=== PATIENT | male | born 1955 | race Caucasian/White ===

== ENCOUNTER → 2019-02-22 10:18 | Outpatient (CLI) | payer SELFPAY ==
[2019-02-05 11:13] VITALS: BMI 29.9
--- NOTE | 2019-02-22 10:21 | ECHOCS_ITS ---
Reason For Study: HTN Procedure This was a 2D Doppler, Color Flow transthoracic echocardiogram. The study was technically difficult. Contrast injection was performed. Echo done post stress echo. Exam performed in department. Left Ventricle Normal size and thickness. The estimated ejection fraction is 65 %. Stage 1 diastolic dysfunction. No regional wall motion abnormalities noted. Right Ventricle Normal size and thickness. Normal systolic function. Atria Normal left atrium. Normal right atrium. Normal atrial septum. Mitral Valve The mitral valve is structurally normal. No prolapse or stenosis seen. Trivial posteriorly directed mitral valve insufficiency. Tricuspid Valve Normal tricuspid valve. Unable to estimate RV systolic pressure due to insufficient tricuspid regurgitant envelope. Aortic Valve Normal aortic valve. Trisinus/trileaflet aortic valve. Pulmonic Valve Normal pulmonic valve. Great Vessels Normal aortic root. Normal arch. Normal inferior vena cava. Inferior vena cava collapse with sniff. Pericardium/Pleural No pericardial effusion. Medication 22 gauge I.V. with prn adaptor inserted into right arm. Diluted definity 2ml given slow IV push to enhance endocardial definition. MMode/2D Measurements & Calculations LVIDd: 3.6 cm IVSd: 0.95 cm LAV(MOD-bp): 47.0 ml LVIDs: 2.5 cm LVPWd: 1.2 cm FS: 31.7 % LAV(MOD-bp) Indexed: 25.2 ml/m2 LAV(MOD-sp2): 38.5 ml LAV(MOD-sp4): 47.2 ml LA A4 area: 18.1 cm2 RA A4 area: 12.4 cm2 Time Measurements MV dec time: 0.16 sec Doppler Measurements & Calculations MV E max del: 65.9 cm/sec Lat Peak E' Del: 13.5 cm/sec Med Peak E' Del: 9.2 cm/sec MV A max del: 90.6 cm/sec E/E' lat: 4.9 E/E' med: 7.2 MV E/A: 0.73 MV V2 max: 96.6 cm/sec MV P1/2t max del: 58.9 cm/sec Ao V2 max: 144.1 cm/sec MV max P.7 mmHg MV P1/2t: 52.9 msec Ao max P.3 mmHg MV V2 mean: 49.2 cm/sec Ao V2 mean: 89.9 cm/sec MV mean P.2 mmHg MV dec slope: 326.1 cm/sec2 Ao mean P.9 mmHg MV V2 VTI: 16.9 cm MVA(P1/2t): 4.2 cm2 Ao V2 VTI: 23.7 cm LV V1 max: 104.6 cm/sec PA V2 max: 122.3 cm/sec LV V1 max P.4 mmHg LV V1 mean P.1 mmHg LV V1 mean: 67.4 cm/sec LV V1 VTI: 18.7 cm Interpretation Summary The estimated ejection fraction is 65 %. Stage 1 diastolic dysfunction. Trivial posteriorly directed mitral valve insufficiency. Unable to estimate RV systolic pressure due to insufficient tricuspid regurgitant envelope. The study was technically difficult. Contrast injection was performed. There is no comparison study available. Ordering Physician: Fernando Fisher Referring Physician: Freddy Torres Performed By: Froilan Cain RCS
--- NOTE | 2019-02-22 10:21 | STEWCON_ITS ---
Reason For Study: ARRHYTMIA Stress Results Protocol: Ezequiel Protocol WITH DEFINITY Maximum Predicted HR: 157 bpm Target HR: 133 bpm % Maximum Predicted HR: 94 % DurationHeart Rate Stage (mm:ss) (bpm) BP Comment BASELINE 88 140/78 STAGE 1 3:00 117 180/78 STAGE 2 3:00 130 170/62 STAGE 3 3:00 148 182/70SOB RECOVERY 104 140/604 CC DEFINITY Stress Duration: 9:00 mm:ss Maximum Stress HR: 148 bpm Baseline Echocardiogram Findings The estimated ejection fraction is 65 %. Stress Echo Wall motion Data Resting WM Intermediate WM Stress WM Resting Wall Motion Wall Motion Stress No regional wall motion Posterior-Basal: Mildly abnormalities noted. hypokinetic. Infero-Basal: Mildly hypokinetic. EKG Data The baseline ECG displays normal sinus rhythm. The patient exercised according to the regular Ezequiel protocol for a total duration of 9:01. The maximum heart rate attained was 151 beats per minute. This was 96% of maximum predicted heart rate. The patient exercised into stage 4 of the Ezequiel protocol. The stress ECG displays diffuse abnormal ST segments. No clinical angina was noted. Interpretation Summary The estimated ejection fraction is 65 %. Abnormal, adequate, treadmill echocardiogram. Positive for ischemia by EKG and echocardiographic criteria. Patient appeared to develop mid inferior hypokinesis at peak exercise. Patient developed [address] segment depression along the inferior lateral leads at 5 minutes 50 seconds into exercise which resolved by 3 minutes 50 seconds into recovery. Rare PVCs noted. Appropriate blood pressure response to exercise. Average exercise capacity for age. Final LVEF of 70%. Stress echo results may be affected by poor echo windows requiring Definity agent. No complications. The study was technically difficult. Contrast injection was performed. Ordering Physician: Fernando Fisher Referring Physician: Fernando Fisher Performed By: Froilan Cain RCS
== END ==
PROVIDERS: Family Provider Family Medicine; PCP Family Medicine; Referring Provider Internal Medicine Cardiovascular Disease; Visit Provider Internal Medicine Cardiovascular Disease
DX: I10 Essential (primary) hypertension (principal); E78.5 Hyperlipidemia, unspecified; I49.3 Ventricular premature depolarization; R94.31 Abnormal electrocardiogram [ECG] [EKG]
CPT/HCPCS: 93017; 93306; 93350; Q9957; A4216; C8928; C8929

== ENCOUNTER 2019-03-13 07:35 | Day surgery (SDC) | payer SELFPAY ==
[2019-02-22 14:52] VITALS: BMI 29.9
[2019-02-27 11:42] VITALS: BMI 29.9
--- NOTE | 2019-03-04 09:54 | RAD_ITS ---
STUDY: X-RAY CHEST REASON FOR EXAM: Male, 63 years old. Abnormal stress test. TECHNIQUE: PA and lateral views of the chest. COMPARISON: None. FINDINGS: The lungs are clear and expanded. There is no demonstrated pleural abnormality. Normal size heart. Normal mediastinum and linus. Normal visualized pulmonary arteries. Normal visualized aortic arch and descending thoracic aorta. There are diffuse degenerative changes of the visualized thoracic spine. Normal visualized ribs, clavicles, and shoulders. There is no demonstrated abnormality of the visualized soft tissue structures of the upper abdomen. RAD/Chest PA and Lateral IMPRESSION: Degenerative changes, as described above. No demonstrated acute cardiopulmonary process. Electronically Signed: True Lloyd DO at 16:57 EDT Tel [phone], Service support ,
[2019-03-04 10:58] LABS: Hematocrit 42.5 % (40-54); Hemoglobin 14.3 g/dL (13.0-16.5); Mean Corp Hgb Conc 33.6 g/dL (32-36); Mean Corpuscular Volume 83.2 fL (80-94); Mean Platelet Vol. 8.8 fl (6.2-12.0); Platelet Count 186 K/mm3 (150-450); RBC Distribution Width CV 12.4 % (11.6-14.6); RBC Distribution Width SD 37.5 fl (35.1-43.9); Red Blood Count 5.11 M/mm3 (4.6-6.2); White Blood Count 6.5 K/mm3 (4.4-11.0)
[2019-03-04 11:08] LABS: International Normalized Ratio 1.1; Prothrombin Time (Protime)PT. 14.3 SECONDS (11.7-14.9)
[2019-03-04 11:09] LABS: Partial Thromboplast Time 28.2 Seconds (24.1-36.2)
[2019-03-04 11:35] LABS: AST(SGOT) 19 U/L (15-37); Alanine Aminotransfer ALT/SGPT 40 U/L (16-61); Albumin, Serum 3.9 g/dL (3.2-5.0); Alkaline Phosphatase 74 U/L (45-117); Anion Gap 5 (5-15); BUN 12 mg/dL (7-18); BUN/Creat Ratio 11.7 RATIO (10-20); Bilirubin, Direct 0.15 mg/dL (0.00-0.30); Calcium,Total 8.6 mg/dL (8.5-10.1); Chloride 108 mmol/L (98-107); Cholesterol 162 mg/dL (200); Creatinine, Serum 1.03 mg/dL (0.70-1.30); EST Glomerular Filtration Rate 77 mL/min (>60); Est Glom Filt Rate - Afr Amer 94 mL/min (>60); Globulin 3.2 g/dL (2.2-4.2); Glucose 113 mg/dL (74-106); High Density Lipoprotein 40 mg/dL; Protein, Total 7.1 g/dL (6.4-8.2); Sodium Level 142 mmol/L (136-145); Triglycerides 110 mg/dL; Very Low Density Lipoprotein 22 mg/dL (5-40)
[2019-03-13 07:53] VITALS: BMI 28.3
--- NOTE | 2019-03-13 10:12 | HP.PCM_ITS ---
Problem List (1) Abnormal EKG Status: Acute (2) Abnormal stress echo Status: Acute (3) Encounter for preventive health examination Status: Acute (4) PVCs (premature ventricular contractions) Status: Acute (5) Hyperlipidemia Status: Chronic (6) Hypertension Status: Chronic History and Physical Date of Admission: 03/13/19 [facility] [address] [place] [address] OFFICE VISIT Date of Service: MR#: [id number] Acct: [id number] Name: PANKAJ ZAMORA Rep #: [id number] : 1955 Provider: Fernando sorensen MD Age/Sex: 63/M Location: [facility] Status: Signed Intake Intake Visit Reasons: Amb Documentation Allergies No Known Allergies Allergy (Unverified 02/05/19 08:49) [facility] Medical History (Updated 02/05/19 @ 08:53 by Jenise Rubio) Abnormal EKG (Acute) PVCs (premature ventricular contractions) (Acute) Hypertension (Chronic) Hyperlipidemia (Chronic) Encounter for preventive health examination (Acute) Family History (Updated 02/05/19 @ 11:12 by Jenise Rubio) Grandfather Prostate cancer Father Prostate cancer Brother Prostate cancer Unknown DVT (deep venous thrombosis) Pulmonary embolus Social History Smoking Status: Current every day smoker tobacco type: cigars Supplemental Info Supplemental Information Diagnostics Electrocardiogram 02/05/19 Echocardiogram 02/22/19 02/25/19 0859 <Electronically signed by Fernando Fisher MD> Date _ Fernando Fisher MD [facility] Signature: Date (if applicable) Interventional cardiology addendum: Patient seen and examined on day of catheterization. No interim changes noted. The risks/benefits of the procedure were thoroughly explained the patient including specific attention to lack of on-site surgical back-up, and informed consent was obtained. Cardiac catheterization to follow.
--- NOTE | 2019-03-13 10:12 | PCM.HP.BLA ---
Problem List (1) Abnormal EKG Status: Acute (2) Abnormal stress echo Status: Acute (3) Encounter for preventive health examination Status: Acute (4) PVCs (premature ventricular contractions) Status: Acute (5) Hyperlipidemia Status: Chronic (6) Hypertension Status: Chronic History and Physical Date of Admission: 03/13/19 [facility] [address] [place] [address] OFFICE VISIT Date of Service: MR#: [id number] Acct: [id number] Name: PANKAJ ZAMORA Rep #: [id number] : 1955 Provider: Fernando Fisher MD Age/Sex: 63/M Location: [facility] [place].[facility] Status: Signed Intake Intake Visit Reasons: Amb Documentation Allergies No Known Allergies Allergy (Unverified 02/05/19 08:49) [facility] Medical History (Updated 02/05/19 @ 08:53 by Jenise Rubio) Abnormal EKG (Acute) PVCs (premature ventricular contractions) (Acute) Hypertension (Chronic) Hyperlipidemia (Chronic) Encounter for preventive health examination (Acute) Family History (Updated 02/05/19 @ 11:12 by Jenise Rubio) Grandfather Prostate cancer Father Prostate cancer Brother Prostate cancer Unknown DVT (deep venous thrombosis) Pulmonary embolus Social History Smoking Status: Current every day smoker tobacco type: cigars Supplemental Info Supplemental Information Diagnostics Electrocardiogram 02/05/19 Echocardiogram 02/22/19 02/25/19 0859 <Electronically signed by Fernando Fisher MD> Date Fernando Fisher MD [facility] Signature: Date (if applicable) Interventional cardiology addendum: Patient seen and examined on day of catheterization. No interim changes noted. The risks/benefits of the procedure were thoroughly explained the patient including specific attention to lack of on-site surgical back-up, and informed consent was obtained. Cardiac catheterization to follow.
--- NOTE | 2019-03-13 11:20 | CL.D_ITS ---
Patient Name: PANKAJ ZAMORA Study Date: 03/13/2019 Performing: Fernando Fisher MD Ht: 65 inches 165.1 cm : 1955 Wt: 170.29 lbs 77.24 kg Age: 63 Gender: male BSA: 1.85 PROCEDURE(S) PERFORMED [id number] CLINICAL PROFILE AND INDICATIONS Indications: Suspected CAD Heart Failure: None Stress/Imaging Date: 02/22/2019 Angina Classification Anginal Classification w/in 2 Weeks: CCS I CAD Presentations: Symptom unlikely to be ischemic. Comorbidities/Risk Factors: Hypertension Dyslipidemia CONCLUSIONS Normal LV size, wall motion,and systolic function Perserved Left Ventricular systolic function with normal EDP LVEF: by LV gram 65 % Non obstructive coronary arteries RECOMMENDATIONS Management as per referring Senior Ssis Developer D/c plavix. Continue anti-HTN and anti-cholesterol meds. DESCRIPTION OF PROCEDURE The patient arrived to the procedure lab. The risks and benefits of the procedure as well as a full d escription of our services here and current unavailability of surgical backup were fully explained to the patient and/or their significant other prior to the catheterization. The Timeout was completed, verifying the correct patient and procedure. The patient's procedural site was prepped and draped in the usual fashion. Local anesthetic was given subcutaneously to right groin region with Lidocaine 2%. Using a modified Seldinger technique, arterial access was obtained via the right femoral artery, a 4 Fr sheath was inserted Left Coronary Artery selective angiography was performed in multiple views us ing a 4 Fr. JL5 catheter. Right Coronary Artery selective angiography was then performed in multiple views using a 4 Fr. 3DRC catheter. Left Ventriculography was performed in CROWLEY projection using a 4 Fr . Pigtail catheter. LV to AO pullback pressures were then recorded.The arterial sheath was pulled and manual compression applied until hemostasis is achieved. CORONARY ANGIOGRAPHY DOMINANCE: Right Dominant LEFT HEART ASSESSMENT Left Ventricular Ejection Fraction: by LV Gram 65 % Normal LV wall motion Normal Left Ventricular systolic function LEFT MAIN: Angiographically normal LEFT ANTERIOR DESCENDING ARTERY: MID LAD: Mild luminal irregularities less than 30% CIRCUMFLEX ARTERY: Angiographically normal RIGHT CORONARY ARTERY: Angiographically normal COMPLICATIONS No Complications PROCEDURE MEDICATIONS Versed 1 mg IV Oxygen: 2 L/min via nasal cannula SUMMARY OF HEMODYNAMIC DATA Time AIR REST ECG 07:55:15 AO 174/86 (115) SA 10:19:42 LV 166/-32, 3 10:24:02 LV 163/-30, 4 10:24:08 LVp 159/-32, -2 10:24:13 AOp 143/75 (101) 10:24:18 Signed By Fernando Fisher MD On 03/13/2019 11:19:32 Fernando Fisher MD
== END 2019-03-13 15:00 | disposition home or self-care (01) ==
LOC: CLSP 07:38
PROVIDERS: Family Provider Family Medicine; PCP Family Medicine; Referring Provider Internal Medicine Cardiovascular Disease; Visit Provider Internal Medicine Cardiovascular Disease
DX: Z00.00 Encounter for general adult medical examination without abnormal findings (principal); E78.5 Hyperlipidemia, unspecified; I49.3 Ventricular premature depolarization; I10 Essential (primary) hypertension; Z79.82 Long term (current) use of aspirin; F17.290 Nicotine dependence, other tobacco product, uncomplicated
CPT/HCPCS: 36415; 71046; 80048; 80061; 80076; 85027; 85610; 85730; 93458; 99152; J7040; Q9967; C1769; C1894